=== PATIENT | male | born 1955 | race Caucasian/White ===

== ENCOUNTER 2020-12-31 15:33 | Emergency (ER) | payer SELFPAY ==
[~2020-12-31] VITALS: Ht 172.7 cm; Wt 74.8 kg
[2020-12-31 15:48] VITALS: Ht 172.7 cm; Wt 74.8 kg
[2020-12-31 16:22] LABS: microscopic required? NO
[2020-12-31 16:48] VITALS: BP 145/84
[2020-12-31 16:57] LABS: T3 TOTAL 1.46 ng/mL
[2020-12-31 17:03] LABS: CARBON DIOXIDE 31.6 mmol/L (21-32); CHLORIDE SERUM 103 mmol/L (98-107); CREATININE SERUM 0.9 mg/dL (0.7-1.3); GFR1 > 60 mL/min; GLUCOSE SERUM 99 mg/dL (74-106); POTASSIUM SERUM 3.4 mmol/L (3.5-5.1); SODIUM SERUM 137 mmol/L (136-145)
[2020-12-31 17:07] LABS: ALBUMIN 3.7 g/dL (3.4-5.0); ALKALINE PHOSPHATASE 70 U/L (46-116); ALT/SGPT 52 U/L (16-63); AST/SGOT 28 U/L (15-37); BILIRUBIN TOTAL 0.7 mg/dL (0.20-1.00); CHOLESTEROL 139 mg/dL (<200); CHOLESTEROL/HDL RATIO 3.2; HDL CHOLESTEROL 43 mg/dL (40-60); LIPASE 169 IU/L (73-393); TOTAL PROTEIN, SERUM 7.4 g/dL (6.4-8.2); TRIGLYCERIDES 135 mg/dL (<150)
[2020-12-31 17:15] LABS: BASOPHIL % 0.2 % (0.2-1.5); PLATELET COUNT 233 x10^3mcL (152-348); RED CELL DISTRIBUTION WIDTH 13.1 % (12.1-16.2)
[2020-12-31 17:39] LABS: FREE T4 1.25 ng/dL (0.76-1.46); FREE THYROXINE INDEX 3.4 ug/dL (1.4-4.5); T4(THYROXINE) 11.1 ug/dL (4.7-13.3)
[2020-12-31 17:52] LABS: urine erythrocyte NEGATIVE (NEGATIVE)
== END 2020-12-31 18:37 | disposition home or self-care (01) ==
LOC: ED 15:33
PROVIDERS: Specialist
DX: R42 Dizziness and giddiness (principal); I10 Essential (primary) hypertension; F17.210 Nicotine dependence, cigarettes, uncomplicated; Z98.890 Other specified postprocedural states
CPT/HCPCS: 83880; 84439; 99406; J7030